=== PATIENT | male | born 1945 | race Two or more races ===

== ENCOUNTER 2017-12-02 16:23 | Inpatient (IN) | payer MEDICARE, OTHER ==
[~2017-12-02] VITALS: Ht 172.7 cm; Wt 68.0 kg
--- NOTE | 2017-12-02 16:45 | NUR ---
BB DAUGHTER FOR CHEST PAIN STARTED YESTERDAY, LEFT ARM AND LEFT LEG WEAKNESS. PT AAOX3. DAUGHTER AT THE BS. VSS. SEEN BY MD FOR EVAL. IV ACCESS STARTED. BLOOD DRAWN FOR LABS. SAFETY AND COMFORT MEASURES PROVIDED. WILL MONITOR.
[2017-12-02 16:56] LABS: BASOPHILS % (AUTO) 0.5 % (0.0-2.0); EOSINOPHILS % (AUTO) 2.6 % (0.0-6.0); HEMATOCRIT 46 % (39-51); HEMOGLOBIN 15.7 g/dL (13.5-17.5); LYMPHOCYTES # (AUTO) 2.6 /CMM (0.8-4.8); MEAN CORPUSCULAR HGB CONC 34 g/dl (31.0-36.0); MEAN CORPUSCULAR VOLUME 90 fL (80-96); MONOCYTES # (AUTO) 0.9 /CMM (0.1-1.30); MONOCYTES % (AUTO) 10.7 % (2.0-12.0); NEUTROPHILS # (AUTO) 4.3 /CMM (1.8-8.9); NEUTROPHILS % (AUTO) 53.2 % (43.0-81.0); PLATELET COUNT (AUTO) 209 /CMM (150-450); RDW COEFFICIENT OF VARIATION 12.7 (11.5-15.0); RED BLOOD CELL COUNT(AUTO) 5.15 MIL/uL (4.5-6.0)
[2017-12-02 17:06] LABS: CALCIUM, SERUM 8.9 mg/dL (8.5-10.1); CARBON DIOXIDE 30 mmol/L (21-32); CHLORIDE 103 mmol/L (98-107); GLUCOSE 79 mg/dL (74-106); POTASSIUM 4.7 mmol/L (3.5-5.1); SODIUM SERUM 138 mmol/L (136-145); UREA NITROGEN, BLOOD 21 mg/dL (7-18)
[2017-12-02 17:09] LABS: INR 0.95 (0.85-1.15)
[2017-12-02 17:15] LABS: TROPONIN I < 0.017 ng/mL (0.00-0.056)
[2017-12-02] MEDS ORDERED: ASPI-1169 PO (17:30)
[2017-12-02] MEDS ORDERED: SEVE800T7 PO (17:30)
[2017-12-02] MEDS ORDERED: AMLO5TAB7 PO (17:30)
[2017-12-02] MEDS ORDERED: DEXL60CA3 PO (17:30)
[2017-12-02] MEDS ORDERED: METO-356 PO (17:30)
[2017-12-02] MEDS ORDERED: ROSU40TA PO (17:30)
[2017-12-02] MEDS ORDERED: ASPIRIN 325 MG TABLET PO ONE (18:30)
[2017-12-02] MEDS ORDERED: ASPIRIN 325 MG TABLET ONE (18:31)
[2017-12-02] MEDS ORDERED: AMLO1TAB12 PO (18:40)
[2017-12-02] MEDS ORDERED: TAMS0.4C34 PO (18:40)
[2017-12-02] MEDS ORDERED: PRAS10TA5 PO (18:40)
--- NOTE | 2017-12-02 19:09 | NUR ---
REPORT GIVEN TO MAXIMUS VINSON FOR TELE 306.
--- NOTE | 2017-12-02 19:30 | NUR ---
RECEIVED PT FROM ER IN STABLE CONDITION . ALERT AND OX4. BREATHING EVENLY. NO O SB. NAD. STILL W/ LUE AND LLE WEAKNESS AND MINIMAL EFFORT AGAINST GRAVITY. NO C/O HEADACHE. NO FACIAL DROOP. NO TROUBLE WITH SPEECH. SWALLOW EVAL DONE AT THE BED SIDE W/ TROUBLE SWALLOWING. DENIED BLURRED VISION. ABLE TO PROVIDE FULL MEDICAL HX. VSS. BED LOW LOCKED. CALL LIGHT WITHIN REACH. FAMILY AT THE BED SIDE. WILL CONT TO MONITOR ,
[2017-12-02 20:00] VITALS: BP 153/89
[2017-12-02] MEDS ORDERED: hydrALAZINE HCL IV 20 MG VIAL IV PRN (20:00)
--- NOTE | 2017-12-02 20:07 | NUR ---
called radiology for STAT echo and carotid duplex US
--- NOTE | 2017-12-02 20:20 | NUR ---
paged jony brooks compliance and control analyst to clarify some orders. will f/u
[2017-12-02 20:45] LABS: ALBUMIN 3.3 g/dL (3.4-5.0); BILIRUBIN,DIRECT 0.1 mg/dL (0.0-0.2); BILIRUBIN,TOTAL 0.2 mg/dL (0.2-1.0); TOTAL PROTEIN, SERUM 7.2 g/dL (6.4-8.2)
--- NOTE | 2017-12-02 20:45 | NUR ---
RECEIVED A CALL BACK FROM DR. YAO. MADE AWARE OF PHARMACY'S CONCERN REGARDING CRESTOR'S HIGH DOSE . MD WITH ANEW ORDER FOR LIPITOR 40MG QHS. SWALLOW EVAL WAS DONE AT THE BED SIDE . PT ABLE TO SWALLOW WATER AND APPLE SAUCE W/ NO S/S OF ASPIRATION, COUGH OR CHOKING. NEW ORDER FOR SOFT DIET WAS OBTAINED. AND FSBS WAS CLARIFIED TO ACHS INSTEAD OF Q6HRS, PHARMACY MADE AWARE,
[2017-12-02 20:46] LABS: THYROID STIMULATING HORMONE 2.227 uIU/mL (0.358-3.74)
[2017-12-02] MEDS: BLOOD SUGAR DIAGNOSTIC 1 EACH STRIP IN SCH (21:13)
[2017-12-02] MEDS: ENOXAPARIN SODIUM 40 MG/0.4 ML DISP.SYRIN SQ SCH (21:18)
[2017-12-02] MEDS ORDERED: Medication Not On Formulary EA (Rosuvastatin Calcium (Crestor) 40 MG) PO SCH (22:00)
[2017-12-02] MEDS ORDERED: ATORVASTATIN 40 MG TABLET PO SCH (22:00)
[2017-12-03] VITALS: BP 114/53
[2017-12-03] MEDS ORDERED: BLOOD SUGAR DIAGNOSTIC 1 EACH STRIP IN SCH
[2017-12-03 04:00] VITALS: BP 124/69
--- NOTE | 2017-12-03 06:31 | NUR ---
PT IN BED SLEEPING. BREATHING EVENLY. NO SOB. NO ACUTE EVENT DURING THE NIGHT . HAD A GOOD NIGHT SLEEP W/ NO C/O HEADACHE, BLURRED VISION, SLURRED SPEECH OR FACIAL DROOP, NEEDS ATTENDED. BED LOW LOCKED. SR W/ 1ST DEGREE AV BLOCK ON TELE MONITOR , NEEDS ATTENDED. BED LOW LOCKED .CALL LIGHT WITHIN REACH, WILL CONT TO MONITOR AND WILL ENDORSE TO AM SHIFT FOR SPENCER,
[2017-12-03] MEDS: BLOOD SUGAR DIAGNOSTIC 1 EACH STRIP IN SCH ×4 (06:50→21:20)
[2017-12-03 07:35] VITALS: BP 122/74
--- NOTE | 2017-12-03 07:37 | NUR ---
IRS AGENT/OPENING NOTES RECEIVED PT. IN BED SLEEPING. BREATHING IS UNLABORED, AND EVEN ON ROOM AIR. NO SOB. NO S/S OF ACUTE DISTRESS. TELE READING IS SINUS RHYTHM 66 BPM. BED IS IN LOWEST, AND LOCKED POSITION. 2 SIDE RAILS UP, AND CALL LIGHT WITHIN REACH. WILL CONTINUE TO ASSESS AND MONITOR.
[2017-12-03] MEDS ORDERED: ATORVASTATIN 10 MG TABLET PO SCH (09:00)
[2017-12-03] MEDS ORDERED: AMLODIPINE PO SCH (09:00)
[2017-12-03] MEDS ORDERED: VALSARTAN PO SCH (09:00)
[2017-12-03] MEDS: AMLODIPINE BESYLATE 5 MG TABLET PO SCH (09:19)
[2017-12-03] MEDS: TAMSULOSIN 0.4 MG CAP.SR.24H PO SCH (09:19)
[2017-12-03] MEDS: VALSARTAN 80 MG TABLET PO SCH (09:19)
--- NOTE | 2017-12-03 12:27 | NUR ---
Social service consult requested by Dr. Kumar for Stroke. Pt. is a 72 year old male who is alert and oriented x 3. Pt. lives alone in an apartment located at [address] [place] [address], [address] [place] [address]. [place] [id number] . Pt. is independent with his ADL's. Pt. has no history of Depression or Anxiety. Per case checker Caleb, pt. is willing to go to [facility] upon discharge. No social service needs are requested at this time. SW is available, if needed.
--- NOTE | 2017-12-03 13:12 | NUR ---
RN NOTES PT. WAS SEEN AND EXAMINED BY CENSUS CLERK, AND RECOMMENDED TO HAVE A MYOCARDIAL STRESS TEST, LEXISCAN. PT. SIGNED CONSENT FORM FOR A FRANCISCO SCAN STRESS TEST FOR 12/04/17 AT O800.
[2017-12-03 13:16] LABS: THYROID STIMULATING HORMONE 1.655 uIU/mL (0.358-3.74)
[2017-12-03 13:54] LABS: APPEARANCE,URINE SL CLOUDY (CLEAR); BILIRUBIN,URINE NEGATIVE (NEGATIVE); BLOOD, URINE TRACE-INTA Ery/uL (NEGATIVE); COLOR,URINE YELLOW (YELLOW); KETONES,URINE NEGATIVE (NEGATIVE); LEUKOCYTE ESTERASE ,URINE NEGATIVE (NEGATIVE); NITRITE, URINE NEGATIVE (NEGATIVE); PH,URINE 6.5 (5.0-8.0); PROTEIN,URINE NEGATIVE (NEGATIVE); UGLUCOSE NEGATIVE (NEGATIVE); UROBILINOGEN,URINE 0.2 EU/dL (0.2)
--- NOTE | 2017-12-03 14:12 | NUR ---
RN NOTES PT. WAS SEEN AND EXAMINED BY OCCUPATIONAL THERAPIST. PER OT PT. NEEDS THERAPY 3X PER WEEK.
[2017-12-03 14:17] LABS: BACTERIA,URINE Few /HPF (None Seen); RBC,URINE 0-2 /HPF (0-2); SQUAMOUS EPITHELIAL CELL,UR Few /HPF (None Seen); WBC,URINE 0-2 /HPF (0-3)
[2017-12-03] MEDS: ASPIRIN EC 325 MG TABLET.DR PO SCH (14:39)
[2017-12-03 16:00] VITALS: BP 108/63
[2017-12-03] MEDS: POLYVINYL ALCOHOL 15 ML BOTTLE OP SCH (17:41)
--- NOTE | 2017-12-03 18:52 | NUR ---
WOODWORKING MACHINE OFFBEARER/CLOSING NOTES PT. IS IN BED A&OX4. BREATHING IS UNLABORED, AND EVENLY ON ROOM AIR. NO SOB. NO S/S OF ACUTE DISTRESS. WEARING 5 LEADS FOR TELE MONITOR. IV ON RIGHT ANTECUBITAL SITE IS INTACT, AND PATENT. PT. WAS SEEN BY PT, OT, AND ST TODAY. DVT PUMPS AT BEDSIDE. BED IS IN LOWEST, AND LOCKED POSITION. 2 SIDE RAILS UP, AND CALL LIGHT WITHIN REACH. WILL ENDORSE REPORT TO NURSE.
--- NOTE | 2017-12-03 18:53 | NUR ---
RN NOTES PT. HAS LEFT UPPER ARM WEAKNESS, ARM DRIFTS BEFORE 10 SECONDS. OCCUPATIONAL THERAPIST RECOMMENDED OT 5X PER WEEK.
--- NOTE | 2017-12-03 19:30 | NUR ---
RN NOTES RECEIVED PT. AWAKE ON BED, A/OX4, SR WITH 1ST DEGREE AV BLOCK, HR-66, COMPLAINED OF HEADACHE, CALL LIGHT WITHIN REACH, SIDERAILSUPX2 CONTINUE TO MONITOR
--- NOTE | 2017-12-03 19:45 | NUR ---
RN NOTES SPOKE TO DR. CHRISTIANO YAO AND GOT AN ORDER OF TYLENOL 650MG PO FOR HEADACHE, ORDER NOTED AND CARRIED OUT
[2017-12-03] MEDS: ACETAMINOPHEN 325 MG TABLET PO PRN (19:50)
--- NOTE | 2017-12-03 19:54 | NUR ---
RN NOTES COMPLAINED OF HEADACHE-TYLENOL 650MG PO GIVEN ORDERED
[2017-12-03 20:00] VITALS: BP 114/72
[2017-12-03] MEDS: ENOXAPARIN SODIUM 40 MG/0.4 ML DISP.SYRIN SQ SCH (21:22)
--- NOTE | 2017-12-03 22:00 | NUR ---
RN NOTES PT ASKED TO CHANGE HIS IV LINE, NEW IV LINE INSERTED ON THE LEFT ARM GAUGE 22
[2017-12-04] VITALS: BP 119/69
[2017-12-04 04:00] VITALS: BP 139/75
[2017-12-04] MEDS: BLOOD SUGAR DIAGNOSTIC 1 EACH STRIP IN SCH ×4 (06:29→21:48)
--- NOTE | 2017-12-04 06:53 | NUR ---
RN NOTES AWAKE, DENIES PAIN, NO SOB, MORNING CARE RENDERED, PT. NEEDS ATTENDED
[2017-12-04 08:00] VITALS: BP 122/67
[2017-12-04] MEDS ORDERED: REGADENOSON 0.4 MG/5 ML DISP.SYRIN IVP ONE (08:00)
--- NOTE | 2017-12-04 08:00 | NUR ---
ms rn received on bed, awake,alert,oriented x4,not in any form of distress, respirations even and unlabored,no sob noted, lungs are clear,abdomen soft,positive bowel sounds,denies pain at this time, will monitor patient's condition,all needs attended.
--- NOTE | 2017-12-04 08:25 | NUR ---
ms rn npo at this time, will monitor patient's condition.
[2017-12-04] MEDS: AMLODIPINE BESYLATE 5 MG TABLET PO SCH (09:00)
--- NOTE | 2017-12-04 10:00 | NUR ---
MS RN PT WENT DOWN FOR LEXICAN STRESS TEST.
[2017-12-04] MEDS: TAMSULOSIN 0.4 MG CAP.SR.24H PO SCH (14:26)
[2017-12-04] MEDS: VALSARTAN 80 MG TABLET PO SCH (14:26)
[2017-12-04] MEDS: ATORVASTATIN 40 MG TABLET PO SCH (14:26)
[2017-12-04] MEDS: ASPIRIN EC 325 MG TABLET.DR PO SCH (14:26)
[2017-12-04] MEDS: POLYVINYL ALCOHOL 15 ML BOTTLE OP SCH ×2 (14:29→18:18)
[2017-12-04] MEDS ORDERED: POTASSIUM CHLORIDE 20 MEQ TAB.PRT.SR PO ONE (15:00)
[2017-12-04 16:00] VITALS: BP 92/48
--- NOTE | 2017-12-04 17:30 | NUR ---
ms rn on bed, blood sugar - 85 - no distress noted, no coverage given.
--- NOTE | 2017-12-04 18:32 | NUR ---
ms rn on bed, no distress, sleeping,all needs attended.
--- NOTE | 2017-12-04 19:30 | NUR ---
RN NOTES RECEIVED PT. AWAKE ON BED, A/OX4, DENIES PAIN, NO SOB, CALL LIGHT WITHIN REACH, SIDERAILSUPX2, PT. NEEDS ATTENDED
[2017-12-04 20:00] VITALS: BP 119/67
[2017-12-04] MEDS: ENOXAPARIN SODIUM 40 MG/0.4 ML DISP.SYRIN SQ SCH (21:48)
--- NOTE | 2017-12-05 06:30 | NUR ---
RN NOTES AWAKE, DENIES PAIN, NO SOB, MORNING CARE RENDERED, CALL LIGHT WITHIN REACH, SIDERAILSUPX2, PT. NEEDS ATTENDED
[2017-12-05] MEDS: BLOOD SUGAR DIAGNOSTIC 1 EACH STRIP IN SCH ×2 (06:37→11:18)
[2017-12-05] MEDS ORDERED: PANTOPRAZOLE 40 MG TABLET.DR PO SCH (07:30)
[2017-12-05 08:00] VITALS: BP 116/61
--- NOTE | 2017-12-05 08:00 | NUR ---
RN NOTES RECEIVED PATIENT IN THE BED A/O X3/4. PATIENT HAS NO RESPIRATORY DISTRESS. V/S TAKEN STABLE, NO COMPLAINING OF PAIN AT THIS TIME. SCHEDULED MEDICATION ADMINISTERED. PATIENT HAS A LEFT SIDE WEAKNESS. ENCOURAGED PATIENT TO EXPRESS FEELINGS AND CONCERNS, TEACHING PATIENT STROKE PREVENTION. CALL LIGHT WITHIN TO REACH, BED ALARM ON. CONTINUED MONITORING.
[2017-12-05] MEDS: ASPIRIN EC 325 MG TABLET.DR PO SCH (08:16)
[2017-12-05] MEDS: AMLODIPINE BESYLATE 5 MG TABLET PO SCH (08:16)
[2017-12-05 08:17] VITALS: BP 116/61
[2017-12-05] MEDS: ATORVASTATIN 40 MG TABLET PO SCH (08:17)
[2017-12-05] MEDS: VALSARTAN 80 MG TABLET PO SCH (08:17)
[2017-12-05] MEDS: POLYVINYL ALCOHOL 15 ML BOTTLE OP SCH (08:17)
[2017-12-05] MEDS: TAMSULOSIN 0.4 MG CAP.SR.24H PO SCH (08:17)
[2017-12-05] MEDS ORDERED: ASPI-992 (09:21)
[2017-12-05] MEDS ORDERED: ROSUVASTATIN CALCIUM PO (09:21)
[2017-12-05] MEDS ORDERED: ATOR40TA PO (09:21)
[2017-12-05] MEDS ORDERED: ASPI-992 PO (09:21)
[2017-12-05] MEDS: ACETAMINOPHEN 325 MG TABLET PO PRN (09:42)
--- NOTE | 2017-12-05 09:42 | NUR ---
RN NOTES ADMINISTERED TYLENOL 650 MG PO PRN FOR LEFT LOWER LEG PAIN 5/10 PER PATIENT REQUEST, CONTINUED MONITORING.
--- NOTE | 2017-12-05 09:51 | NUR ---
RN NOTES PER Dr. IRWIN PATIENT WILL D/C TO REHAB, CONTINUED MONITORING.
--- NOTE | 2017-12-05 11:23 | NUR ---
RN NOTES BS-82 NO COVERAGE GIVEN, MEDICATION WERE ADMINISTERED FOR PAIN EFFECTIVE, CALL LIGHT WITHIN TO REACH, CONTINUED MONITORING.
--- NOTE | 2017-12-05 15:15 | NUR ---
DISCHARGE NOTES PATIENT DISCHARGE AT THIS TIME GOING ACUTE REHAB. PATIENT A/O X4, MED COMPLIANT, V/S STABLE, MEDICALLY STABLE, NO C/O PAIN AT THIS TIME. MED RECONCILIATION AND DISCHARGE ORDER REVIEWED AND EXPLAINED TO. REPORT GIVEN ZIGZAG STITCHER. RN VERBALIZED UNDERSTANDING. BELONGING WITH THE PATIENT PATIENT SIGN PAPERWORK. PATIENT FAMILY AWARE OF DISCHARGE PLANING. PATIENT MISSION WORKER BY AMBULANCE.
== END 2017-12-05 15:00 | DRG 65 ==
LOC: ER 16:32 → TELE 18:46 → MED 12-04 12:02
PROVIDERS: ADMIT Internal Medicine; ATTEND Family Medicine
DX: I63.9 Cerebral infarction, unspecified (principal); G81.94 Hemiplegia, unspecified affecting left nondominant side; F03.90 Unspecified dementia, unspecified severity, without behavioral disturbance, psychotic disturbance, mood disturbance, and anxiety; I34.0 Nonrheumatic mitral (valve) insufficiency; J44.9 Chronic obstructive pulmonary disease, unspecified; E78.5 Hyperlipidemia, unspecified; I10 Essential (primary) hypertension; Z87.891 Personal history of nicotine dependence; K21.9 Gastro-esophageal reflux disease without esophagitis; N40.0 Benign prostatic hyperplasia without lower urinary tract symptoms; I73.9 Peripheral vascular disease, unspecified; F43.10 Post-traumatic stress disorder, unspecified; Z86.73 Personal history of transient ischemic attack (TIA), and cerebral infarction without residual deficits; Z96.649 Presence of unspecified artificial hip joint; Z91.14 Patient's other noncompliance with medication regimen; K27.9 Peptic ulcer, site unspecified, unspecified as acute or chronic, without hemorrhage or perforation; M81.0 Age-related osteoporosis without current pathological fracture; F41.9 Anxiety disorder, unspecified; I44.0 Atrioventricular block, first degree; I25.119 Atherosclerotic heart disease of native coronary artery with unspecified angina pectoris
CPT/HCPCS: 36415; 70450-TC; 71045-TC; 80048-TC; 80061-TC; 80076-TC; 80305; 81000-TC; 82306; 82962-TC; 83880; 84439-TC; 84443-TC; 84484-TC; 85025-TC; 85652-TC; 85730-TC; 86592; 87081-TC; 92611-TC; 93307-TC; 93880-TC; 97110-TC; 97112-TC; 97116-TC; 97530-TC; A4606; A9502; J1650; J2785; Z7610

== ENCOUNTER 2019-02-19 04:41 | Emergency (ER) | payer MEDICARE, OTHER ==
[~2019-02-19] VITALS: Ht 167.6 cm; Wt 68.9 kg
[~2019-02-19 04:41] MED LIST: AMLO1TAB12 PO; ASPI-992; ASPI-992 PO; ATOR40TA PO; DEXL60CA3 PO; PRAS10TA5 PO; ROSU40TA PO; ROSUVASTATIN CALCIUM PO; TAMS0.4C34 PO
--- NOTE | 2019-02-19 05:09 | NUR ---
PT BIB HIS SON WITH A C/O DIZZINESS S/P GOING TO THE BATHROOM. PT STATED THAT HE URINATED AND ON HIS WAY BACK TO THE BED, HE FELT DIZZY. PT HAS HX OF CVA IN THE PAST WITH LEFT SIDED WEAKNESS. PT AMBULATED TO ER #2 WITH A STEADY GAIT. PT WAS PLACED ON THE MONITOR AND CONTINUOUS PULSE OX. PT IS AA&O X 4. PT'S SON IS AT THE BEDSIDE.
--- NOTE | 2019-02-19 05:10 | NUR ---
PT IS SPEAKING TO DR SORTO.
--- NOTE | 2019-02-19 05:20 | NUR ---
Code stroke called per Dr manrique.
--- NOTE | 2019-02-19 05:21 | NUR ---
TECH AT BEDSIDE FOR EKG
--- NOTE | 2019-02-19 05:22 | NUR ---
BLOOD COLLECTED AND GIVEN TO LAB
--- NOTE | 2019-02-19 05:24 | NUR ---
PT TAKEN TO CT VIA JOSEPH
[2019-02-19 05:30] LABS: BASOPHILS # (AUTO) 0.1 /CMM (0.0-0.2); BASOPHILS % (AUTO) 1.2 % (0.0-2.0); EOSINOPHILS % (AUTO) 3.6 % (0.0-6.0); HEMATOCRIT 49 % (39-51); LYMPHOCYTES # (AUTO) 1.9 /CMM (0.8-4.8); LYMPHOCYTES % (AUTO) 26.4 % (20.0-44.0); MEAN CORPUSCULAR HGB CONC 33 g/dl (31.0-36.0); MEAN CORPUSCULAR VOLUME 94 fL (80-96); MONOCYTES # (AUTO) 0.8 /CMM (0.1-1.30); MONOCYTES % (AUTO) 10.7 % (2.0-12.0); NEUTROPHILS # (AUTO) 4.1 /CMM (1.8-8.9); NEUTROPHILS % (AUTO) 58.1 % (43.0-81.0); PLATELET COUNT (AUTO) 197 /CMM (150-450); RED BLOOD CELL COUNT(AUTO) 5.18 MIL/uL (4.5-6.0)
[2019-02-19] MEDS ORDERED: CT SWABBABLE VALVE TRANS SET 1 EA INFUS.SET MC ONE (05:36)
[2019-02-19] MEDS ORDERED: IOHEXOL-350 100 ML VIAL IV ONE (05:36)
[2019-02-19] MEDS ORDERED: IV NS 0.9% 250 ML IV ONE (05:36)
--- NOTE | 2019-02-19 05:36 | NUR ---
PT RETURNED FROM CT. PT TOLERATED WELL.
[2019-02-19 05:39] LABS: CARBON DIOXIDE 27 mmol/L (21-32); CHLORIDE 102 mmol/L (98-107); GLUCOSE 97 mg/dL (74-106); POTASSIUM 3.9 mmol/L (3.5-5.1); SODIUM SERUM 137 mmol/L (136-145); UREA NITROGEN, BLOOD 21 mg/dL (7-18)
[2019-02-19 05:47] LABS: CHOLESTEROL 160 mg/dL (<200); HDL CHOLESTEROL 54 mg/dL (40-60); LDL 93 mg/dL (0-99); TRIGLYCERIDES 44 mg/dL (30-150)
[2019-02-19] MEDS ORDERED: ALTEPLASE 100 MG/VIAL VIAL IV ONE (06:00)
--- NOTE | 2019-02-19 06:13 | NUR ---
PT LEFT FOR CTA
--- NOTE | 2019-02-19 06:21 | NUR ---
PT RETURNED FROM CTA.
--- NOTE | 2019-02-19 06:25 | NUR ---
PT AMBULATED TO THE BATHROOM WITH A STEADY GAIT.
--- NOTE | 2019-02-19 06:30 | NUR ---
PT RETURNED FROM THE BATHROOM. PT WAS PLACED BACK ON THE MONITOR AND CONTINUOUS PULSE OX. PT C/O FEELING DIZZY AFTER URINATING. PT STATED THAT THE SYMPTOM RESOLVED ONCE HE RETURNED TO THE BED.
--- NOTE | 2019-02-19 06:34 | NUR ---
DR SORTO SPOKE TO THE RADIOLOGIST. PT HAS A CAROTID DISECTION. Addendum: 02/19/19 at 0645 by BRANDAN RT CAROTID DISECTION
--- NOTE | 2019-02-19 06:49 | NUR ---
DR SORTO IS AT THE BEDSIDE SPEAKING TO THE PT AND HIS SON.
--- NOTE | 2019-02-19 06:50 | NUR ---
[facility] called. Facesheet and CT read faxed.
--- NOTE | 2019-02-19 06:53 | NUR ---
DR ALEXANDRA, VASCULAR SURGEON, IS ON THE PHONE WITH DR. SORTO
[2019-02-19] MEDS ORDERED: HEPARIN SODIUM, PORCINE 5000 UNITS/1 ML VIAL IV ONE (07:00)
[2019-02-19] MEDS ORDERED: HEPARIN INFUSION/D5W 500 ML IV PRN (07:00)
[2019-02-19] MEDS ORDERED: HEPARIN SODIUM, PORCINE 5000 UNITS/1 ML VIAL ONE (07:10)
[2019-02-19] MEDS ORDERED: HEPARIN INFUSION/D5W 500 ML IV ONE (07:10)
--- NOTE | 2019-02-19 07:15 | NUR ---
REPORT GIVEN TO KATHRYN RN/CHG
--- NOTE | 2019-02-19 07:30 | NUR ---
REPORT GIVEN TO KAREL DIAMOND FOR SPENCER.
--- NOTE | 2019-02-19 07:31 | NUR ---
REPORT RECEIVED FROM ADRIANA BAUER FOR SPENCER. PT IN BED AWAKE, NOT IN DISTRESS, HOOKED TO MONITOR, ONGOING HEPARIN DRIP AT 1250 U/hr. SON AT BEDSIDE. WILL CONTINUE TO MONITOR, KEPT SAFE, WARM AND COMFORTABLE.
--- NOTE | 2019-02-19 07:35 | NUR ---
CALL FROM KARISHMA VINSON,[facility], THEY ARE PREPARING AN ICU BED AND WILL DISPATCH CCT AT 0900, DR VERNON, PATIENT AND SON INFORMED OF PLAN
[2019-02-19 10:04] VITALS: BP 124/57
--- NOTE | 2019-02-19 10:15 | NUR ---
ADDENDUM: Intravenous End Time Documentation: Heparin Infusion (25,000/D5W 500 ml) start time: 0700 end time:1015; INFUSING DURING [facility]; PIV # 18 LAC; PORT #1
--- NOTE | 2019-02-19 10:16 | NUR ---
Patient discharged to [facility], [facility] W KAI Warren RN in stable condition. Report given to Kai Rose RN. Son signed transfer consent. PT WILL BE TRANSFERRED TO [facility]. REPORT GIVEN TO MS DEBO VINSON OF ICU [phone] ICU ROOM# [id number] ADMITTING MD: DR CORONADO VASCULAR SURGEON: DR ALEXANDRA
== END 2019-02-19 10:19 | disposition short-term general hospital (02) ==
LOC: ER 04:48
DX: R42 Dizziness and giddiness (principal); E78.00 Pure hypercholesterolemia, unspecified; I10 Essential (primary) hypertension; F10.10 Alcohol abuse, uncomplicated; F17.200 Nicotine dependence, unspecified, uncomplicated; Y90.9 Presence of alcohol in blood, level not specified; Z86.73 Personal history of transient ischemic attack (TIA), and cerebral infarction without residual deficits; Z79.82 Long term (current) use of aspirin
CPT/HCPCS: 36415; 70450; 70496; 70498; 71045; 80048; 80061; 82962; 84484; 85025; 85730; 93005; 96365; 96366; 99291; J1644 ×2; J7050; Q9967